=== PATIENT | male | born 2000 | race African-American/Black ===

== ENCOUNTER 2023-05-17 14:29 | Emergency (ER) | payer OTHER ==
[~2023-05-17] VITALS: Ht 165.1 cm; Wt 57.8 kg
[2023-05-17 16:13] LABS: Basophils # (auto) 0 10 ^3/uL (0-0.2); Basophils % (auto) 0.1 % (0.0-2.0); Eosinophils # (auto) 0.1 10 ^3/uL (0-0.8); Eosinophils % (auto) 1.5 % (0.0-7.0); Hematocrit 41.7 % (41.0-53.0); Lymphocytes # (auto) 0.8 10 ^3/uL (0.4-5.4); Lymphocytes % (auto) 15.2 % (10.0-50.0); Mean Corpuscular Hemoglobin 30.5 pg (28.0-32.0); Mean Corpuscular Hgb Conc. 33.6 g/dL (32.0-36.0); Mean Corpuscular Volume 90.6 fL (80.0-100.0); Monocytes # (auto) 0.5 10 ^3/uL (0-1.3); Monocytes % (auto) 9.6 % (0.0-12.0); Neutrophils # (auto) 4.1 10 ^3/uL (1.6-8.6); Neutrophils % (auto) 73.6 % (37.0-80.0); Nucleated Red Blood Cells % 0.1 %; Red Cell Distribution Width 13.3 % (11.8-14.3); White Blood Cell 5.5 10^3/uL (4.4-10.8)
[2023-05-17 16:24] LABS: Chloride 100 mmol/L (98-107); Potassium 3.9 mmol/L (3.5-5.1); Sodium 137 mmol/L (136-145)
[2023-05-17 16:25] LABS: Anion Gap 8 (5-15); Calcium 9.9 mg/dL (8.7-10.4); Carbon Dioxide 29 mmol/L (20-30)
[2023-05-17 16:30] LABS: BUN/Creatinine Ratio 9.4 (10.0-20.0); Blood Urea Nitrogen 8 mg/dL (9-23); Glucose 83 mg/dL (74-106)
[2023-05-17 18:36] LABS: Urine Bacteria NONE SEEN /hpf (None Seen); Urine Blood Negative /uL (Negative); Urine Clarity HAZY (Clear); Urine Color Brown (Yellow); Urine Hyaline Cast FEW /lpf (0 - 2); Urine Mucus FEW (None Seen); Urine Protein, UAD 1+ (Negative); Urine Specific Gravity 1.039 (1.001-1.035); Urine Urobilinogen >12.0 mg/dL (Negative); Urine WBC 8 /hpf (0 - 3); Urine pH 6.5 (5.0-8.0)
[2023-05-17 18:45] LABS: Amphetamine Screen, Urine Neg (NEGATIVE); Barbiturate Scree,Urine Pos (NEGATIVE); Benzodiazephine Screen, Urine Neg (NEGATIVE); Cocaine Screen, Urine Neg (NEGATIVE); Opiate Scree,Urine Neg (NEGATIVE); Phencyclidine Screen, Urine Neg (NEGATIVE)
[2023-05-17 18:46] LABS: Cannabinoid Screen, Urine Neg (NEGATIVE)
[2023-05-17] MEDS ORDERED: SODIUM CHLORIDE 0.9% 1,000 ML IV ONE (19:45)
[2023-05-17 23:09] VITALS: BP 129/86; PULSE 80; RESP 18; TEMP 98.3; O2SAT 100
== END 2023-05-17 23:17 | disposition home or self-care (01) ==
LOC: ER 14:29
DX: E86.0 Dehydration (principal); R10.84 Generalized abdominal pain; R51.9 Headache, unspecified; Z79.899 Other long term (current) drug therapy
CPT/HCPCS: 36415; 70450; 74176; 80048; 80307; 80329; 81001; 82962; 85025; 96360; 99284; J7030

== ENCOUNTER 2023-06-06 18:29 | Emergency (ER) | payer OTHER ==
[~2023-06-06] VITALS: Ht 170.2 cm; Wt 57.8 kg
[2023-06-06 18:57] VITALS: BP 107/70; PULSE 71; RESP 8; O2SAT 95
[2023-06-06 19:35] LABS: Basophils # (auto) 0 10 ^3/uL (0-0.2); Basophils % (auto) 0.2 % (0.0-2.0); Eosinophils # (auto) 0.1 10 ^3/uL (0-0.8); Eosinophils % (auto) 1.5 % (0.0-7.0); Hematocrit 40.3 % (41.0-53.0); Hemoglobin 13.4 g/dL (13.5-17.5); Lymphocytes # (auto) 2.1 10 ^3/uL (0.4-5.4); Lymphocytes % (auto) 41.3 % (10.0-50.0); Mean Corpuscular Hemoglobin 30.4 pg (28.0-32.0); Mean Corpuscular Hgb Conc. 33.2 g/dL (32.0-36.0); Mean Corpuscular Volume 91.6 fL (80.0-100.0); Monocytes # (auto) 0.4 10 ^3/uL (0-1.3); Neutrophils # (auto) 2.4 10 ^3/uL (1.6-8.6); Nucleated Red Blood Cells % 0.5 %; Red Cell Distribution Width 12.9 % (11.8-14.3)
[2023-06-06 19:56] LABS: Alanine Aminotransferase 71 U/L (7-40); Albumin 4.7 g/dL (3.2-4.8); Alkaline Phosphatase 300 U/L (46-116); Anion Gap 7 (5-15); Aspartate Aminotransferase 32 U/L (13-40); BUN/Creatinine Ratio 11.5 (10.0-20.0); Blood Urea Nitrogen 10 mg/dL (9-23); Calcium 9.7 mg/dL (8.5-10.1); Carbon Dioxide 29 mmol/L (20-30); Chloride 105 mmol/L (98-107); Glucose 81 mg/dL (74-106); Potassium 3.6 mmol/L (3.5-5.1); Sodium 141 mmol/L (136-145)
[2023-06-06 19:57] LABS: Bilirubin, Total 0.5 mg/dL (0.2-1.0); Total Protein 7.7 g/dL (5.7-8.2)
[2023-06-06 20:04] LABS: Urine Amorphous Crystal FEW /hpf (None Seen); Urine Bacteria NONE SEEN /hpf (None Seen); Urine Blood Negative /uL (Negative); Urine Clarity HAZY (Clear); Urine Color Yellow (Yellow); Urine Mucus FEW (None Seen); Urine Protein, UAD TRACE (Negative); Urine Specific Gravity 1.027 (1.001-1.035); Urine WBC 2 /hpf (0 - 3); Urine pH 7.5 (5.0-8.0)
== END 2023-06-06 22:30 | disposition home or self-care (01) ==
LOC: ER 18:29
DX: R10.84 Generalized abdominal pain (principal)
CPT/HCPCS: 36415; 80053; 81001; 85025